=== PATIENT | female | born 1985 | race American Indian/Alaskan Native ===

== ENCOUNTER 2017-05-03 06:59 | Day surgery (SDC) | payer MEDICAID ==
[2017-05-01 12:02] LABS: Hematocrit 25.8 % (30.3-42.9); Mean Corpuscular HGB Conc 31 % (30-34); Red Blood Count 4.35 M/mm3 (3.65-5.03); White Blood Count 5.4 K/mm3 (4.5-11.0)
[2017-05-01 12:28] LABS: Mean Corpuscular Hemoglobin 18 pg (28-32); Mean Corpuscular Volume 59 fl (79-97); Red Cell Distribution Width 23.5 % (13.2-15.2)
[2017-05-01 13:54] LABS: Anisocytosis 2+; Basophils % (Manual) 0 % (0.0-1.8); Blastocytes % (Manual) 0 %; Eosinophils % (Manual) 0 % (0.0-4.3); Hypochromasia 2+; Microcytosis 2+
[2017-05-01 13:55] LABS: Diff Status Complete; Elliptocytes 1+; Large Platelets Few; Ovalocytes Few
[2017-05-01 18:06] LABS: Platelet Count 246 K/mm3 (140-440)
--- NOTE | 2017-05-03 06:38 | Anesthesia Consultation ---
Anesthesia Consult and Med Hx Date of service: 05/03/17 - Airway Anesthetic Teeth Evaluation: Good ROM Head & Neck: Adequate Mental/Hyoid Distance: Adequate Mallampati Class: Class II Intubation Access Assessment: Good - Pulmonary Exam CTA: Yes - Cardiac Exam Cardiac Exam: RRR - Pre-Operative Health Status ASA Pre-Surgery Classification: ASA3 Proposed Anesthetic Plan: General - Pulmonary Hx Asthma: Yes (no treatment, Pt is breathing at baseline) COPD: No - Cardiovascular System Hx Hypertension: Yes - Central Nervous System Hx Psychiatric Problems: No - Endocrine Hx End Stage Renal Disease: No Hx Non-Insulin Dependent Diabetes: Yes - Hematic Hx Anemia: Yes - Other Systems Hx Cancer: No
--- NOTE | 2017-05-03 06:39 | Anesthesia Day of Surgery ---
Anesthesia Day of Surgery - Day of Surgery Patient Examined: Yes Patient H&P Reviewed: Yes Patient is NPO: Yes
--- NOTE | 2017-05-03 06:40 | History and Physical Report ---
History of Present Illness Date of examination: 05/03/17 Date of admission: 05/03/2017 Chief complaint: dysfunctional uterine bleeding History of present illness: 32y/o with dysfunctional uterine bleeding. The patient is currently using a BTL for contraception. Endometrial biopsy in the office was benign. She has history to small leiomyoma. The patient declines medical therapy Medications and Allergies Allergies Allergy/AdvReac Type Severity Reaction Status Date / Time No Known Allergies Allergy Verified 04/30/17 09:22 Home Medications Medication Instructions Recorded Confirmed Last Taken Type No Known Home Medications [No 04/27/17 04/27/17 Unknown History Reported Home Medications] Active Meds: Active Medications Famotidine (Pepcid) 20 mg PO PREOP NR Stop: 05/03/17 23:00 Sodium Chloride (Nacl 0.9% 1000 Ml) 1,000 mls @ 75 mls/hr IV DIRECT JOSE Midazolam HCl (Versed) 2 mg IV PREOP NR Stop: 05/03/17 23:59 - Vital Signs Vital signs: Vital Signs Temp Pulse Resp BP 98.2 F 72 16 128/78 05/01/17 11:30 05/01/17 11:30 05/01/17 11:30 05/01/17 11:30 Temp Pulse Resp BP Pulse Ox 98.2 F 72 16 128/78 05/01/17 11:30 05/01/17 11:30 05/01/17 11:30 05/01/17 11:30 Results Result Diagrams: 05/01/17 11:35 All other labs normal.
--- NOTE | 2017-05-03 06:44 | Short Stay Summary ---
Short Stay Documentation Date of service: 05/03/17 Narrative H&P: 32y/o with dysfunctional uterine bleeding. Endometrial biopsy was benign. She has known history of small leiomyomas. She declines medical management. - History Principal diagnosis: dysfunctional uterine bleeding Past Medical History: anemia, other (asthma; fibroids) Past Surgical History: , Other (tubal ligation) Social history: single - Allergies and Medications Current Medications: Allergies No Known Allergies Allergy (Verified 04/30/17 09:22) Home Medications Medication Instructions Recorded Confirmed Last Taken Type No Known Home Medications [No 04/27/17 04/27/17 Unknown History Reported Home Medications] Active Medications Famotidine (Pepcid) 20 mg PO PREOP NR Stop: 05/03/17 23:00 Hydromorphone HCl (Dilaudid) 0.5 mg IV Q10MIN PRN PRN Reason: Pain , Severe (7-10) Stop: 05/06/17 06:40 Sodium Chloride (Nacl 0.9% 1000 Ml) 1,000 mls @ 75 mls/hr IV DIRECT JOSE Midazolam HCl (Versed) 2 mg IV PREOP NR Stop: 05/03/17 23:59 - Physical exam General appearance: no acute distress Integumentary: no rash HEENT: Atraumatic Lungs: Clear to auscultation Breasts: deferred Heart: Regular rate Gastrointestinal: normal Female Genitourinary: deferred - Brief post op/procedure progress note Date of procedure: 05/03/17 Pre-op diagnosis: dysfunctional uterine bleeding Post-op diagnosis: same Procedure: Hysteroscopy Dilatation and curettage Endometrial ablation via NovaSure Anesthesia: GETA Surgeon: FREDDIE RINALDI Estimated blood loss: minimal Pathology: list (endometrial curettings) Specimen disposition: to lab Condition: stable - Hospital course Hospital course: The patient was admitted the day of surgery and underwent a hysteroscopy endometrial ablation. Please see operative note for details of surgery. Her postoperative course was uneventful. - Disposition Condition at discharge: Good Disposition: [id number] TO HOME OR SELFCARE Short Stay Discharge Plan Activity: other (pelvic rest for 2 weeks) Diet: regular Additional Instructions: Scheduled follow-up appointment with Dr. Rinaldi and 4 weeks Prescriptions: Ibuprofen [Motrin] 800 mg PO Q8HR PRN #60 tablet PRN Reason: Pain oxyCODONE /ACETAMINOPHEN [Percocet 5/325] 1 tab PO Q6HR PRN #30 tablet PRN Reason: Pain
[~2017-05-03 06:59] MED LIST: NACL BACTERIOSTATIC INFILTRATI ONE; PEPCID PO NR; PERCOCET 5/325 PO PRN; VERSED IV NR; ZOFRAN IV PRN
[2017-05-03] MEDS ORDERED: DIPRIVAN 10 MG/ML IV ONE (07:04)
[2017-05-03] MEDS ORDERED: SUBLIMAZE ONE (07:04)
[2017-05-03] MEDS ORDERED: ZOFRAN ONE ×2 (07:11→10:09)
[2017-05-03] MEDS ORDERED: XYLOCAINE MPF 2% ONE (07:17)
--- NOTE | 2017-05-03 07:19 | Anesthesia Consultation ---
Anesthesia Consult and Med Hx Date of service: 05/03/17 - Airway Anesthetic Teeth Evaluation: Good ROM Head & Neck: Adequate Mental/Hyoid Distance: Adequate Mallampati Class: Class II Intubation Access Assessment: Probably Good - Pulmonary Exam CTA: Yes - Cardiac Exam Cardiac Exam: RRR - Pre-Operative Health Status ASA Pre-Surgery Classification: ASA2 Proposed Anesthetic Plan: General - Pulmonary Hx Asthma: Yes (no treatment, Pt is breathing at baseline) COPD: No - Cardiovascular System Hx Hypertension: Yes - Central Nervous System Hx Psychiatric Problems: No - Endocrine Hx End Stage Renal Disease: No Hx Non-Insulin Dependent Diabetes: Yes - Hematic Hx Anemia: Yes - Other Systems Hx Cancer: No Hx Obesity: Yes
--- NOTE | 2017-05-03 07:20 | Anesthesia Day of Surgery ---
Anesthesia Day of Surgery - Day of Surgery Patient Examined: Yes Patient H&P Reviewed: Yes Patient is NPO: Yes
[2017-05-03] MEDS ORDERED: NACL 0.9% 1000 ML 1,000 ML IV SCH (07:30)
[2017-05-03] MEDS ORDERED: DILAUDID ONE (08:13)
[2017-05-03] MEDS ORDERED: NACL 0.9% IR ONE ×2 (08:15→08:16)
--- NOTE | 2017-05-03 08:22 | Operative Report ---
Operative Report Operative Report: Date of procedure: 05/03/2017 Pre-operative diagnosis: Dysfunctional uterine bleeding Post-operative diagnosis: Same as above; endometrial polyp Procedure name(s): Hysteroscopy; dilatation and curettage; endometrial ablation via NovaSure Surgeon: Africa Mora M.D. Caul Dresser: None Anesthesia: LMA Findings lush endometrial lining with findings of a endometrial polyp Indication: 32-year-old 89 with a history dysfunctional uterine bleeding and a known history of uterine fibroids. The patient had elected to undergo surgical management of her abnormal bleeding. Procedure The patient was taken to the operating room and given general tracheal anesthesia without complication. The patient was prepped and draped in a normal sterile fashion. A bivalve speculum was placed in the patient's vagina single-tooth tenaculums placed on the anterior lip of the cervix. The cervical os was dilated with graduated dilators. A uterine sound was inserted. The hysteroscope was then placed. Insufflation of the uterine cavity was performed with normal saline. Gen. survey of the uterine cavity revealed lush endometrial lining with findings of a endometrial polyp informing the left lateral aspect of the endometrial cavity. The hysteroscope was then removed. The NovaSure device was then inserted. The endometrial length was 5.5 cm and the uterine width was 3.7 cm. The device was engaged and it passed the surveillance of the uterine cavity. The NovaSure device was then deployed with a energy of 112 that lasted for 1 minute 56 seconds. The NovaSure device was then removed. The hysteroscope was again reinserted. There was evidence of charring of the endometrial surface. The remainder of the vaginal instruments were then removed atraumatically. The patient was then successfully extubated taken to the recovery room. All sponge laps and needle counts were correct 2.
[2017-05-03] MEDS: DILAUDID IV PRN ×3 (08:39→08:54)
[2017-05-03] MEDS ORDERED: BENADRYL IV ONE (09:17)
[2017-05-03] MEDS ORDERED: BENADRYL ONE (09:19)
[2017-05-03] MEDS ORDERED: ZOFRAN IV PRN (09:30)
[2017-05-03] MEDS ORDERED: PERCOCET 5/325 PO NR (10:00)
[2017-05-03] MEDS ORDERED: TORADOL IV PRN (10:00)
[2017-05-03] MEDS ORDERED: DECADRON IV ONE (11:30)
[2017-05-03] MEDS ORDERED: TRANSDERM-SCOP TD ONE (11:30)
[2017-05-03 11:57] VITALS: BP 140/83
--- NOTE | 2017-05-03 13:05 | Post Anesthesia Evaluation ---
- Post Anesthesia Evaluation Patient Participated: Yes Airway Patent: Yes Stable Respiratory Function: Yes Nausea/Vomiting: No Temp > 96.8F: Yes Pain Manageable: Yes Adequeate Hydration: Yes Anesthesia Complications: No Block Receding Appropriately: Not Applicable Patient on Ventilator: No
== END 2017-05-03 11:46 | disposition home or self-care (01) ==
LOC: OR 06:59
PROVIDERS: ATTEND Obstetrics & Gynecology
DX: N93.8 Other specified abnormal uterine and vaginal bleeding (principal); E11.9 Type 2 diabetes mellitus without complications; E66.9 Obesity, unspecified; N84.0 Polyp of corpus uteri; J45.909 Unspecified asthma, uncomplicated; I10 Essential (primary) hypertension
CPT/HCPCS: 36415; 58563; 84703; 85007; 85025; 88305; A4217; J1100; J1170; J1200; J1885; J2250; J2405; J2704; J3010; J7030